=== PATIENT | female | born 1985 | race Native Hawaiian/Other Pacific Islander ===

== ENCOUNTER 2017-12-02 07:46 | Emergency (ER) | payer OTHER ==
[~2017-12-02] VITALS: Ht 152.4 cm; Wt 99.3 kg
== END 2017-12-02 11:43 | disposition home or self-care (01) ==
LOC: ED 07:46
DX: S90.02XA Contusion of left ankle, initial encounter (principal); S80.12XA Contusion of left lower leg, initial encounter; S93.492A Sprain of other ligament of left ankle, initial encounter; X50.9XXA Other and unspecified overexertion or strenuous movements or postures, initial encounter; Y92.512 Supermarket, store or market as the place of occurrence of the external cause
CPT/HCPCS: 99283; L4350

== ENCOUNTER 2018-02-22 20:36 | Emergency (ER) | payer OTHER ==
[~2018-02-22] VITALS: Ht 152.4 cm; Wt 104.3 kg
== END 2018-02-22 23:15 | disposition home or self-care (01) ==
LOC: ED 20:36
DX: M79.672 Pain in left foot (principal)
CPT/HCPCS: 99282

== ENCOUNTER 2018-06-10 00:47 | Emergency (ER) | payer OTHER ==
[~2018-06-10] VITALS: Ht 157.5 cm; Wt 115.2 kg
[2018-06-10 01:25] VITALS: BP 149/71; TEMP 98.9
== END 2018-06-10 01:25 | disposition home or self-care (01) ==
LOC: ED 00:47
DX: R20.0 Anesthesia of skin (principal); M79.604 Pain in right leg
CPT/HCPCS: 99281